=== PATIENT | female | born 1985 | race African-American/Black ===

== ENCOUNTER 2016-09-28 04:48 | Emergency (ER) | payer OTHER ==
[2016-09-28 05:09] VITALS: BMI 31.1
--- NOTE | 2016-09-28 05:13 | PDOC ---
History of Present Illness - General History Source: Patient Exam Limitations: No Limitations - History of Present Illness Initial Comments: 09/28/16 05:18 The patient is a 31 year old female with no significant past medical history who presents to the ED for 1 day of headache. Patient reports she is fasting for ramadan. States she developed a headache yesterday afternoon and took two advils with improvement. She was awoken this morning because the headache returned and is much more intense. States taking two advils again with slight improvement. She reports associated nausea, but no vomiting. Denies photophobia , blurry vision, or dizziness. The patient denies fever, chills, cough, SOB, chest pain, abdominal pain, and diarrhea. <Radha Rueda - Last Filed: 09/28/16 05:18> - General History Source: Patient <David Mccann - Last Filed: 09/28/16 19:33> - General Chief Complaint: Headache Stated Complaint: HEAD ACHE Time Seen by Provider: 09/28/16 05:13 Past History <Radha Rueda - Last Filed: 09/28/16 05:18> - Past Medical History Asthma: No Cancer: No Cardiac Disorders: No Diabetes: No HTN: No Seizures: No Thyroid Disease: No - Reproductive History (#): 3 Para: 2 Cervical CA: No Dysfunctional Uterine Bleeding: No Ectopic : No Endometrial CA: No Polycystic Ovaries: No Therapeutic (s) & number: No Tubal Ligation: No Spontaneous : 0 - Immunization History Immunization Up to Date: Yes - Psycho/Social/Smoking Cessation Hx Anxiety: No Suicidal Ideation: No Smoking History: Never smoked Have you smoked in the past 12 months: No Number of Cigarettes Smoked Daily: 0 Cigars Per Day: 0 Hx Alcohol Use: No Drug/Substance Use Hx: No Substance Use Type: None Hx Substance Use Treatment: No <David Mccann - Last Filed: 09/28/16 19:33> - Past Medical History Allergies/Adverse Reactions: Allergies Allergy/AdvReac Type Severity Reaction Status Date / Time No Known Allergies Allergy Verified 09/28/16 05:07 Home Medications: Ambulatory Orders Ibuprofen [Advil -] 600 mg PO QID PRN 09/28/16 Review of Systems - Review of Systems Able to Perform ROS?: Yes Comments:: 09/28/16 05:18 CONSTITUTIONAL: Absent: fever, no chills, no fatigue EYES: Absent: visual changes ENT: Absent: ear pain, no sore throat CARDIOVASCULAR: Absent: chest pain, no palpitations RESPIRATORY: Absent: cough, no SOB GI: +nausea Absent: abdominal pain, no vomiting, no constipation, no diarrhea GENITOURINARY: Absent: dysuria, no frequency, no hematuria MUSCULOSKELETAL: Absent: back pain, no arthralgia, no myalgia SKIN: Absent: rash NEURO: +headache <Radha Rueda - Last Filed: 09/28/16 05:18> *Physical Exam - Vital Signs Last Vital Signs Temp Pulse Resp BP Pulse Ox 98.2 F 100 H 18 137/77 100 09/28/16 05:08 09/28/16 05:08 09/28/16 05:08 09/28/16 05:08 09/28/16 05:08 - Physical Exam Comments: 09/28/16 05:18 GENERAL: Well-appearing, well-nourished. No apparent distress. HEENT: Normocephalic, atraumatic. PERRL, EOM intact. CARDIOVASCULAR: Normal S1, S2. Regular rate and rhythm. PULMONARY: Clear to auscultation bilaterally. ABDOMEN: Soft, non-distended, non-tender. EXTREMITIES: Normal ROM in all four extremities. No gross deformities. SKIN: Warm, dry. No rash NEUROLOGICAL: No focal neurological deficits. <Tyler Ruedavita - Last Filed: 09/28/16 05:18> - Vital Signs Last Vital Signs Temp Pulse Resp BP Pulse Ox 98.2 F 100 H 18 137/77 100 09/28/16 05:08 09/28/16 05:08 09/28/16 05:08 09/28/16 05:08 09/28/16 05:08 <David Mccann - Last Filed: 09/28/16 19:33> Medical Decision Making - Medical Decision Making 09/28/16 19:32 Dr. Mccann: The scribe's documentation has been prepared under my direction and personally reviewed by me in its entirery. I confirm that the note above accurately reflects all work, treatment, procedures, and medical decision making performed by me. <David Mccann - Last Filed: 09/28/16 19:33> *DC/Admit/Observation/Transfer - Attestations Scribe Attestion: 09/28/16 05:19 Documentation prepared by Radha Rueda, acting as medical science liaison for David Mccann MD/DO. <Radha Rueda - Last Filed: 09/28/16 05:18> - Discharge Dispostion Admit: No <David Mccann - Last Filed: 09/28/16 19:33> Diagnosis at time of Disposition: Headache Qualifiers: Headache type: tension-type Headache chronicity pattern: acute headache Intractability: not intractable Qualified Code(s): G44.209 - Tension-type headache, unspecified, not intractable - Discharge Dispostion Disposition: HOME Condition at time of disposition: Improved - Referrals Referrals: Nancy Hunt MD [Primary Care Provider] - - Patient Instructions Printed Discharge Instructions: DI for Hormonal and Tension Headaches Additional Instructions: Return to the emergency department immediately with ANY new, persistent or worsening symptoms including worsening headache, vision changes, numbness/ tingling/weakness, persistent nausea and vomiting or any other concerns. Make sure you are getting adaqute sleep and hydration. You MUST call and follow up with your doctor tomorrow for further evaluation of your symptoms. Your emergency department visit is not complete without a followup with your doctor for reevaluation. Results were discussed with you. Please make sure your doctor reviews the results of your emergency evaluation. Print Language: TURKMEN
[2016-09-28] MEDS ORDERED: METOCLOPRAMIDE HCL 10 MG TABLET (FP) PO ONE ×2 (05:14→05:16)
--- NOTE | 2016-09-28 07:53 | PDOC ---
*Physical Exam - Vital Signs Last Vital Signs Temp Pulse Resp BP Pulse Ox 98.2 F 100 H 18 137/77 100 09/28/16 05:08 09/28/16 05:08 09/28/16 05:08 09/28/16 05:08 09/28/16 05:08 ED Treatment Course - ADDITIONAL ORDERS Additional order review: Laboratory Results 09/28/16 05:14 Urine HCG, Qual Negative - Medications Given in the ED: ED Medications Discontinued Medications Generic Name Dose Route Start Last Admin Trade Name Rupali PRN Reason Stop Dose Admin Metoclopramide HCl 10 mg 09/28/16 05:14 09/28/16 05:18 Reglan - PO 09/28/16 05:15 10 mg ONCE ONE Administration Medical Decision Making - Medical Decision Making 09/28/16 07:51 Pt signed out to me from Dr. Ca 31y F no pmhx presents with headache since x day, pt notes headache is much resolved since receiving meds in ED. Pt has been fasting for ramada, and has not been eating or drinking very much in the morning prior to starting her fast. Pt denies any associated neuro sypmtoms. head ct negative for acute pathology. will dc the pt with supportive care and instructions to hydrate herself. I discussed the physical exam findings, ancillary test results and final diagnoses with the patient. I answered all of the patient's questions. The patient was satisfied with the care received and felt comfortable with the discharge plan and treatment plan. The patient will call their primary care physician within 24 hours to arrange follow-up and will return to the Emergency Department with any new, persistent or worsening symptoms. *DC/Admit/Observation/Transfer Diagnosis at time of Disposition: Headache Qualifiers: Headache type: tension-type Headache chronicity pattern: acute headache Intractability: not intractable Qualified Code(s): G44.209 - Tension-type headache, unspecified, not intractable - Discharge Dispostion Disposition: HOME Condition at time of disposition: Improved Admit: No - Referrals Referrals: Nancy Hnut MD [Primary Care Provider] - - Patient Instructions Printed Discharge Instructions: DI for Hormonal and Tension Headaches Additional Instructions: Return to the emergency department immediately with ANY new, persistent or worsening symptoms including worsening headache, vision changes, numbness/ tingling/weakness, persistent nausea and vomiting or any other concerns. Make sure you are getting adaqute sleep and hydration. You MUST call and follow up with your doctor tomorrow for further evaluation of your symptoms. Your emergency department visit is not complete without a followup with your doctor for reevaluation. Results were discussed with you. Please make sure your doctor reviews the results of your emergency evaluation. Print Language: MEXICAN - Post Discharge Activity
[2016-09-28 07:58] VITALS: BP 135/80; PULSE 68; TEMP 98.3
== END 2016-09-28 07:58 | disposition home or self-care (01) ==
LOC: JER 04:48
DX: G44.209 Tension-type headache, unspecified, not intractable (principal)
CPT/HCPCS: 70450-TC; 84703; 99282-25